=== PATIENT | female | born 1955 | race Caucasian/White ===

== ENCOUNTER 2022-09-02 17:03 | Emergency (ER) | payer OTHER, SELFPAY ==
[2022-09-02 17:06] VITALS: BP 99/40; PULSE 105; RESP 18; TEMP 36.6; O2SAT 95; BMI 30.9
--- NOTE | 2022-09-02 17:43 | USR_ITS ---
PROCEDURE INFORMATION: Exam: US Duplex Left Lower Extremity Veins, Limited Exam date and time: 09/02/2022 5:57 PM Age: 66 years old Clinical indication: Pain; Leg, lower; Left; Additional info: Pain in left calf to groin, PT with sudden development of large varicose veins on left TECHNIQUE: Imaging protocol: Real-time duplex ultrasound of the left extremity with 2-D garcia scale, color Doppler flow and spectral waveform analysis including responses to compression and other maneuvers (when performed) with image documentation. Limited exam focused on the left lower extremity veins. COMPARISON: No relevant prior studies available. FINDINGS: Left deep veins: Unremarkable. The common femoral, femoral, proximal profunda femoral and popliteal veins are patent without thrombus. Normal Doppler waveforms. Normal compressibility and/or augmentation response. Left superficial veins: Unremarkable. Saphenofemoral junction is patent without thrombus. Soft tissues: Unremarkable. US/CV venous duplex [facility] [id number] IMPRESSION: No evidence of deep vein thrombosis.
--- NOTE | 2022-09-02 18:00 | ED_ITS ---
HPI - Extremity Problem General: Chief complaint: Extremity Problem,Nontraumatic Stated complaint: left leg pain Time Seen by Provider: 09/02/22 17:18 Source: patient Mode of arrival: ambulatory Limitations: no limitations History of Present Illness: Patient presents emergency department today for evaluation treatment of significant left calf and left thigh pain worsening overnight. 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 However, with further questioning of the patient, she does not believe these 2 issues are currently related. She states she is mostly concerned about her leg today. She states she noticed onset of her discomfort yesterday but, woke today with worse pain and, significant enhancement of the varicosities and new finding of pronounced varicosities to the left medial, proximal calf region. Patient is currently wearing compression socks upon arrival. She is denying chest pains, shortness of breath, headache. She herself has never had a history of a blood clot though her family has a history of blood clots without known blood clotting disorder. Review of Systems General: Reports: 10 or more systems reviewed and unremarkable except in HPI and below Musc: Reports: extremity swelling (Increased varicosities to left lower extremity) and muscle cramps (Left calf and left thigh pain) Physical Exam Const: COMMON NORMALS: no acute distress, patient oriented x3 and alert HENMT: COMMON NORMALS: normocephalic, atraumatic and hearing grossly normal bilaterally HEAD & SCALP: normocephalic and atraumatic Eye: COMMON NORMALS: Equal, round and reactive pupils present, EOMs intact bilaterally and conjunctivae normal CONJUNCTIVA: Yes conjunctivae normal PUPIL: Yes Equal, round and reactive pupils present Neck/C-Spine: COMMON NORMALS: full ROM and no JVD Lymph: LYMPHATIC: no lymphadenopathy noted Resp: COMMON NORMALS: normal respiratory effort, No retractions and No use of accessory muscles Cardio: COMMON NORMALS: no JVD and regular rate RATE: regular rate Extremity: NARRATIVE EXTREMITY EXAM: Patient is tender to the left calf with extension up the left anterior and mid thigh towards the groin. Neuro: COMMON NORMALS: patient oriented x3 SENSORIUM/ORIENTATION: Yes alert Psych: COMMON NORMALS: mental status grossly normal, Normal thought process present, cooperative and normal affect THOUGHT PROCESS: Normal thought process present Skin: COMMON NORMALS: no rashes or lesions noted and turgor normal GENERAL SKIN EXAM: no rashes or lesions noted and turgor normal OTHER: No signs of erythema or bruising to the left lower extremity. Patient has a very large, ropey varicosity noted to the medial, proximal left calf. Course Vital Signs: Vital signs: Vital Signs Temperature 97.9 F 09/02/22 17:06 Pulse Rate 105 H 09/02/22 17:06 Respiratory Rate 18 09/02/22 17:06 Blood Pressure 99/40 09/02/22 17:06 Pulse Oximetry 95 09/02/22 17:06 Oxygen Delivery Me thod 09/02/22 17:06 MDM - Extremity (Nontraumatic) Medical Decision Making Patient presented to the emergency department today for evaluation treatment of worsening left lower extremity pain and significantly increased varicose veins. Patient had noticeable varicose veins to the left lower extremity but, ultrasound was negative for DVT. Patient is currently wearing compression stockings and we added a wrap of 6 inch Kush bandaging for added compression for the next couple of days. Patient was told to elevate the extremity is much as possible. She was given 1 day off work to allow her to continue resting the extremity and keeping it elevated. 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 Warned her that she may continue to deal with or have worsening symptoms of varicose veins from this point without intervention. Patient verbalized understanding and agreement to treatment plan. Lab Data Radiology Impressions Venous Duplex 09/02/22 17:43 IMPRESSION: No evidence of deep vein thrombosis. Discharge Plan Discharge Patient Disposition: Home Clinical Impression: Varicose veins of left lower extremity Condition: Stable Discharge Orders: Discharge ED (Routine); Ordered 09/02/22 Ordered By: Nalini Bass Referrals: Felix Hicks [Primary Care Provider] - Discharge Diet: Usual diet Discharge Activity: Limit activity as instructed Patient Instructions: Varicose Veins Activity Restrictions/Additional Instructions: Ultrasound today showed no signs of any acute DVT in your lower leg causing the increased varicose vein swelling. Continue to wear compression stockings. For the next several days you may wish to also wrap your left leg with the Kush bandage. Is much as possible, keep your leg up and elevated. I am also requesting you take off work on Sunday. I put a referral in for a follow-up with vascular to discuss your options for treatment as your lifestyle and work schedule seem to keep you on your feet and unfortunately, can cause continued or worsening issues with varicose veins. Stand Alone Forms: Work/School Release Coding Level of Care Code ED [employer] for Kimberly Lebron
--- NOTE | 2022-09-04 11:57 | DCPLANNER ---
Addendum entered by Beth Anaya 09/20/22 09:17: This appointment was cancelled Addendum entered by Beth Anaya 09/08/22 08:13: Patient has a follow up appointment scheduled for Monday, September 19, 2022 at 2:[address] Broussard at [facility]. Addendum entered by Beth Anaya 09/07/22 08:04: engineering research manager received following messages from [facility] regarding follow up appointment: Spoke with patient family member and he stated he would have the patient call back since she is not at home at this time. On Sun 9:56a Sep 05, 2022 Janna Chilel (Covering For: [facility] Front [facility]) Wrote To: [facility] Addendum entered by Beth Anaya 09/06/22 09:13: engineering research manager received the following message from [facility] regarding follow up appointment: Attempted to call patient, left vm to call back. On Sun 8:57a Sep 05, 2022 Janna Chilel (Covering For: [facility]) Wrote To: [facility] @ 1:00 On Sun 12:02p Sep 04, 2022 Janna Chilel (Covering For: [facility] Front [facility]) Wrote To: [facility] [place] Front Office Will have Mis Broussard nurse review tomorrow when they come back in for clinic. Original Note: engineering research manager had message to schedule a follow up appointment for patient with cardiology. engineering research manager sent patients information to the front office staff at [facility]. Patients information will be reviewed. Clinic will call patient with appointment information.
== END 2022-09-02 18:58 | disposition home or self-care (01) ==
PROVIDERS: Emergency Provider Physician Assistant; PCP Family Medicine
DX: I83.812 Varicose veins of left lower extremity with pain (principal)
CPT/HCPCS: 93971; 99284

== ENCOUNTER → 2024-05-11 13:58 | Outpatient (BNVA) | payer OTHER, SELFPAY | PROVIDERS: PCP Family Medicine | DX: M25.774 Osteophyte, right foot (principal); M79.671 Pain in right foot | CPT/HCPCS: 73630 ==